=== PATIENT | female | born 1995 | race Caucasian/White ===

== ENCOUNTER 2017-01-08 22:52 | Emergency (ER) | payer OTHER ==
[~2017-01-08] VITALS: Ht 172.7 cm; Wt 77.1 kg
--- NOTE | 2017-01-08 23:00 | NUR ---
TO BED 6 A 21 YO FEMALEPATIENT BB SELF. "RED, SWOLLEN, AND WHEEZY. MAY HAVE BEEN EXPOSED TO PEANUTS." PER PATIENT, SHE TRIED GIVING HERSELF WITH THE EPIPEN BUT DONT THINK SHE DID IT CORRECTLY. PATIENT IS AAOX4, AMBULATORY, APPEARS FLUSHED. REPORTS OF MILD SOB. 98% ON ROOM AIR, BREATHING EVEN AND UNLABORED. PLACED ON CARDIAC AND VS MONITORING. DR GARCIA AT BEDSIDE TO [facility].
--- NOTE | 2017-01-08 23:15 | NUR ---
medicated patient as ordered by Dr Rhodes.
--- NOTE | 2017-01-09 00:27 | NUR ---
patient felt better, and said she wants to go home. vss. Dr Rhodes notified.
--- NOTE | 2017-01-09 01:29 | NUR ---
IV removed. Catheter intact and site benign. Pressure and 4x4 applied to site. No bleeding noted. Patient discharged to home in stable condition. Written and verbal after care instructions given. Patient verbalizes understanding of instruction. Patient is ambulatory with steady gait, accompanied by father. Instructed not to drive. No further complaints.
[2017-01-09 01:30] VITALS: BP 106/70
== END 2017-01-09 01:30 | disposition home or self-care (01) ==
LOC: ER 22:53
DX: T78.01XA Anaphylactic reaction due to peanuts, initial encounter (principal); Z91.010 Allergy to peanuts; Y92.89 Other specified places as the place of occurrence of the external cause
CPT/HCPCS: A4606; J0171; J1200; J2930; J3490; J7030; Z7610

== ENCOUNTER 2019-03-30 02:13 | Emergency (ER) | payer SELFPAY ==
[~2019-03-30] VITALS: Ht 162.6 cm; Wt 68.0 kg
[2019-03-30 02:17] VITALS: BP 135/94
--- NOTE | 2019-03-30 02:56 | NUR ---
Dr Olivares is at the bedside speaking to the pt. Pt is demanding an IV for nutrition. Pt stated that she need's IV nutrition because she has been starving for a year. Pt stated: "I don't have time to keep explaining my life history to everyone. I know what I need." Pt is now calling her brother and has him on speaker phone so the Doctor can hear her. The Pt is demanding an IV and saying that she is living in her body and her brain and is tired of people not believing her. She wants to go live on Facebook with the conversation she is having with the Dr. The pt ate some food that was provided and Dr Olivares told the pt that is she can eat then she does not need an IV. The pt became upset and stated: "I'm not stupid. I know what my body needs." Pt is demanding an IV.
--- NOTE | 2019-03-30 03:00 | NUR ---
The Dr stated that if she can eat then she doesn't need nutrition. The pt is also c/o Constipation. Dr Olivares told the pt that she can give her something for the constipation, but the pt refused.
--- NOTE | 2019-03-30 03:06 | NUR ---
Security arrived and is escorting the pt out of the ER. The Pt told her brother that she couldn't move, but ended up walking to the nurse's station with a steady gait.
--- NOTE | 2019-03-30 03:15 | NUR ---
Patient discharged to home in stable condition. Written and verbal after care instructions given. Patient verbalizes understanding of instruction. Pt ambulatory with a steady gait
== END 2019-03-30 03:16 | disposition home or self-care (01) ==
LOC: ER 02:15
DX: F22 Delusional disorders (principal); F17.200 Nicotine dependence, unspecified, uncomplicated

== ENCOUNTER 2019-03-30 04:32 | Emergency (ER) | payer SELFPAY ==
[~2019-03-30] VITALS: Ht 162.6 cm; Wt 68.0 kg
--- NOTE | 2019-03-30 04:32 | NUR ---
PER EMS, PT HAD BEEN DRINKING GATERADE PRIOR TO THEIR ARRIVAL AND UPON EMS ARRIVAL TO PT'S CAR, PT OPENED THE DOOR AND LOWERED HERSELF TO THE GROUND AND STATED THAT SHE WAS TOO WEAK TO MOVE. WHEN I ASKED EMS WHERE HER CAR WAS/THE LOCATION OF [employer] THEY STATED NADYA AND SILVERIO RAMOS.
[2019-03-30 04:39] VITALS: BP 144/91
--- NOTE | 2019-03-30 04:45 | NUR ---
TANYA SCHERER AND [employer]YA FROM HER CAR. TO ER BED 12. AAOX4. NO RESP DISTRESS NOTED. AMBULATORY. PT WAS JUST DISCHARGED NOT TOO LONG AGO. PT IS BACK STATING THE SAME COMPLAINT AND WANT TO HAVE AN IV FOR HYDRATION AND NUTRITION. PT WAS ABLE TO EAT AND TOLERATED FOOD WITH ANY PROBLEM. THIS TIME PT IS WITH THE FATHER WHO BROUGHT HER WATER TO DRINK WELL. PER EMS, UPON THEIR ARRIVAL TO THE SCENE, PT OPENED DOOR AND AND LOWERED HERSELF TO THE GROUND STATING THE SHE IS TOOK WEAK. PT WALKED OUT OF THE ER FROM PRIOR DISCHARGE. MD WAS AT BEDSIDE.
--- NOTE | 2019-03-30 04:46 | NUR ---
PT'S FATHER ARRIVED AND IS AT THE BEDSIDE.
--- NOTE | 2019-03-30 05:25 | NUR ---
Patient discharged to home in stable condition. Pt ambulatory with a steady gait. Pt reufsed to sign and left w/o ACI.
== END 2019-03-30 05:35 | disposition home or self-care (01) ==
LOC: ER 04:34
DX: F22 Delusional disorders (principal); F17.200 Nicotine dependence, unspecified, uncomplicated